=== PATIENT | male | born 1975 | race African-American/Black ===

== ENCOUNTER 2025-02-21 12:54 | Emergency (ER) | payer MEDICAID ==
[~2025-02-21] VITALS: Ht 170.2 cm; Wt 90.7 kg
[2025-02-21] MEDS ORDERED: LIDOCAINE HCL 1% 20 ML VIAL ONE (13:56)
[2025-02-21] MEDS ORDERED: BENZONATATE 100 MG CAPSULE ONE (14:40)
[2025-02-21] MEDS: BENZONATATE 100 MG CAPSULE PO ONE (14:48)
[2025-02-21] MEDS ORDERED: AZIT1PAC9 PO (14:50)
[2025-02-21] MEDS ORDERED: ALBU18HF2 INH (14:50)
[2025-02-21] MEDS ORDERED: PRED20TA PO (14:50)
[2025-02-21] MEDS ORDERED: BENZ-38 PO (14:50)
[2025-02-21] MEDS ORDERED: ALBUTEROL SULFATE 2.5 MG/3 ML NEBU ONE (14:54)
[2025-02-21] MEDS ORDERED: IPRATROPIUM BROMIDE 0.5 MG/2.5 ML NEBU ONE (14:54)
[2025-02-21 15:03] VITALS: O2SAT 97
[2025-02-21] MEDS: ALBUTEROL SULFATE 2.5 MG/3 ML NEBU NEB ONE (15:03)
[2025-02-21] MEDS: IPRATROPIUM BROMIDE 0.5 MG/2.5 ML NEBU NEB ONE (15:03)
[2025-02-21 16:00] VITALS: BP 151/83
[2025-02-21 16:03] VITALS: O2SAT 97
[2025-02-21 16:05] VITALS: BP 151/83; TEMP 98.7; O2SAT 97
== END 2025-02-21 16:06 | disposition home or self-care (01) ==
LOC: ER 12:54
DX: J06.9 Acute upper respiratory infection, unspecified (principal); J20.9 Acute bronchitis, unspecified; R06.02 Shortness of breath; J45.909 Unspecified asthma, uncomplicated; Z86.19 Personal history of other infectious and parasitic diseases; Z20.822 Contact with and (suspected) exposure to COVID-19
CPT/HCPCS: A4606; A4663; J3490; J3590; J7512